=== PATIENT | male | born 1985 | race Two or more races ===

== ENCOUNTER 2016-09-26 12:18 | Emergency (ER) | payer OTHER ==
--- NOTE | 2016-09-26 12:59 | RAD ---
LEFT WRIST 3 VIEWS HISTORY: On the job injury with left wrist pain. COMPARISONS: None. TECHNIQUE: Frontal, lateral, and oblique views of the left wrist. ALIGNMENT: Grossly unremarkable. FRACTURE: No displaced acute fracture. SOFT TISSUES: Volar soft tissue swelling. RADIOOPAQUE FOREIGN BODY: None. IMPRESSION: No gross malalignment or displaced acute fracture noted. Volar soft tissue swelling is present.
== END 2016-09-26 15:10 | disposition home or self-care (01) ==
LOC: ED 12:18
DX: M25.532 Pain in left wrist (principal); X50.3XXA Overexertion from repetitive movements, initial encounter; Y93.H2 Activity, gardening and landscaping; Y92.74 Orchard as the place of occurrence of the external cause; Y99.0 Civilian activity done for income or pay